=== PATIENT | female | born 1995 | race Caucasian/White ===

== ENCOUNTER 2021-12-11 03:47 | Emergency (ER) | payer BC, OTHER ==
[~2021-12-11] VITALS: Ht 149.9 cm; Wt 53.0 kg
[2021-12-11 06:42] LABS: HEMATOCRIT 42.5 % (36.0-47.0); HEMOGLOBIN 14.8 g/dl (12.0-15.5); MEAN CORPUSCULAR HEMOGLOBIN 33.9 pg (27.0-33.0); MEAN CORPUSCULAR HGB CONC 34.8 g/dl (32.0-36.5); MEAN CORPUSCULAR VOLUME 97.5 fl (80.0-96.0); PLATELET COUNT, AUTOMATED 211 10^3/uL (150-450); RED BLOOD COUNT 4.36 10^6/uL (4.00-5.40); WHITE BLOOD COUNT 5.3 10^3/uL (4.0-10.0)
[2021-12-11 07:05] LABS: AMPHETAMINES LEVEL URINE NEGATIVE (NEGATIVE); BARBITURATES URINE NEGATIVE (NEGATIVE); BENZODIAZEPINES URINE NEGATIVE (NEGATIVE); CANNABINOIDS URINE NEGATIVE (NEGATIVE); COCAINE METABOLITE URINE NEGATIVE (NEGATIVE); METHADONE URINE NEGATIVE (NEGATIVE); OPIATES URINE NEGATIVE (NEGATIVE); PHENCYCLIDINE URINE NEGATIVE (NEGATIVE)
[2021-12-11 07:17] LABS: ACETAMINOPHEN LEVEL < 2.0 UG/ML (10.0-30.0); ALBUMIN 4.3 GM/DL (3.2-5.2); ALT/SGPT 29 U/L (12-78); BILIRUBIN,DIRECT 0.1 MG/DL (0.0-0.2); BILIRUBIN,TOTAL 0.5 MG/DL (0.2-1.0); BLOOD UREA NITROGEN 10 MG/DL (7-18); CALCIUM LEVEL 9.7 MG/DL (8.5-10.1); CARBON DIOXIDE LEVEL 29 MEQ/L (21-32); CHLORIDE LEVEL 105 MEQ/L (98-107); CREATININE FOR GFR 0.74 MG/DL (0.55-1.30); ETHYL ALCOHOL (ETHANOL) < 0.003 % (0.000-0.010); GLOMERULAR FILTRATION RATE > 60.0 (>60); GLUCOSE, FASTING 105 MG/DL (70-100); POTASSIUM SERUM 3.8 MEQ/L (3.5-5.1); SALICYLATE LEVEL < 1.7 MG/DL (5.0-30.0); SODIUM LEVEL 141 MEQ/L (136-145); TOTAL PROTEIN 7.6 GM/DL (6.4-8.2)
[2021-12-11 08:10] LABS: HCG, SERUM QUALITATIVE NEGATIVE (NEGATIVE)
[2021-12-11 08:19] LABS: RSV AMPLIFICATION NEGATIVE (NEGATIVE)
[2021-12-11 16:53] VITALS: BP 130/72
== END 2021-12-11 16:56 | disposition home or self-care (01) ==
LOC: M ED 03:47
DX: F43.0 Acute stress reaction (principal)

== ENCOUNTER 2024-07-02 11:38 | Inpatient (IN) | payer BC, MEDICAID, OTHER ==
[~2024-07-02] VITALS: Ht 142.2 cm; Wt 80.0 kg
[2024-07-02 12:19] LABS: HEMATOCRIT 41.2 % (36.0-47.0); HEMOGLOBIN 13.8 g/dl (12.0-15.5); MEAN CORPUSCULAR HEMOGLOBIN 30.2 pg (27.0-33.0); MEAN CORPUSCULAR HGB CONC 33.5 g/dl (32.0-36.5); MEAN CORPUSCULAR VOLUME 90.2 fl (80.0-96.0); PLATELET COUNT, AUTOMATED 269 10^3/uL (150-450); RED BLOOD COUNT 4.57 10^6/uL (4.00-5.40); WHITE BLOOD COUNT 7.7 10^3/uL (4.0-10.0)
[2024-07-02 12:40] LABS: AMPHETAMINES LEVEL URINE NEGATIVE (NEGATIVE); BARBITURATES URINE NEGATIVE (NEGATIVE); BENZODIAZEPINES URINE NEGATIVE (NEGATIVE); COCAINE METABOLITE URINE NEGATIVE (NEGATIVE); METHADONE URINE NEGATIVE (NEGATIVE)
[2024-07-02 12:41] LABS: CANNABINOIDS URINE NEGATIVE (NEGATIVE); OPIATES URINE NEGATIVE (NEGATIVE); PHENCYCLIDINE URINE NEGATIVE (NEGATIVE)
[2024-07-02 12:43] LABS: ETHYL ALCOHOL (ETHANOL) < 0.003 % (0.000-0.010)
[2024-07-02 12:45] LABS: ALBUMIN 3.9 G/DL (3.2-5.2); ALKALINE PHOSPHATASE 69 U/L (35-104); ALT/SGPT 38 U/L (7.0-40); AST/SGOT 24 U/L (<34); BILIRUBIN,DIRECT 0.1 MG/DL (<0.4); BILIRUBIN,TOTAL 0.5 MG/DL (0.3-1.2); BLOOD UREA NITROGEN 5 MG/DL (9-23); CALCIUM LEVEL 9.4 MG/DL (8.5-10.1); CARBON DIOXIDE LEVEL 22 MMOL/L (20-31); CHLORIDE LEVEL 106 MMOL/L (98-107); CREATININE FOR GFR 0.66 MG/DL (0.55-1.30); GLOMERULAR FILTRATION RATE > 60.0 (>60); GLUCOSE, FASTING 110 MG/DL (60-100); POTASSIUM SERUM 3.7 MMOL/L (3.5-5.1); SALICYLATE LEVEL < 3.0 MG/DL (<30); SODIUM LEVEL 143 MMOL/L (136-145); TOTAL PROTEIN 7.8 G/DL (5.7-8.2)
[2024-07-02 12:47] LABS: THYROID STIMULATING HORMONE 0.922 uIU/ML (0.55-4.78)
[2024-07-02 13:20] LABS: HCG, SERUM QUALITATIVE NEGATIVE (NEGATIVE)
[2024-07-02] MEDS ORDERED: DROS1TAB PO (15:00)
[2024-07-02] MEDS ORDERED: METF10004 PO (15:00)
[2024-07-02] MEDS ORDERED: HOME MED LIST COMPLETE! XX SCH (15:00)
[2024-07-02] MEDS ORDERED: MOM 30ML SUSPENSION UDC PO PRN (20:30)
[2024-07-02] MEDS ORDERED: ACETAMINOPHEN 325 MG TAB PO PRN (20:30)
[2024-07-02] MEDS ORDERED: MAALOX 30 ML SUSP *UDC PO PRN (20:30)
[2024-07-03 02:09] VITALS: BP 144/80; TEMP 97.2; O2SAT 99
[2024-07-03 06:33] VITALS: BP 158/90; TEMP 97.3; O2SAT 97
[2024-07-03] MEDS ORDERED: OLANZapine ORAL DISINTEGRATING TAB 5MG PO PRN (10:10)
[2024-07-03] MEDS: metFORMIN (GLUCOPHAGE) 1000MG TABLET PO SCH (10:34)
[2024-07-03] MEDS: RISPERIDONE 1 MG TAB PO SCH (10:34)
[2024-07-03 15:43] VITALS: BP 124/77; TEMP 97.4; O2SAT 95
[2024-07-03] MEDS: IBUPROFEN 400MG TAB PO PRN (16:04)
[2024-07-03] MEDS: traZODone 50 MG TAB PO PRN (20:18)
[2024-07-04 06:24] VITALS: BP 150/90; TEMP 97.6; O2SAT 96
[2024-07-04 15:30] VITALS: BP 147/89; TEMP 97.7; O2SAT 97
[2024-07-05] MEDS: NICOTINE 21MG/24HR 1 EA TRANSDERMAL TD PRN (14:38)
[2024-07-05 16:07] VITALS: BP 144/86; TEMP 97.2; O2SAT 98
[2024-07-05] MEDS: diphenhydrAMINE 25MG CAP PO PRN (21:22)
[2024-07-06 06:48] VITALS: BP 115/68; TEMP 97; O2SAT 98
[2024-07-06] MEDS ORDERED: NICO21PAT TD (07:44)
== END 2024-07-06 14:15 | disposition home or self-care (01) | DRG 750 ==
LOC: M ED 11:38 → M ED INP 20:27 → M PSY 07-03 00:01
PROVIDERS: ADMIT Psychiatry & Neurology Neurology; ATTEND Psychiatry & Neurology Psychiatry
DX: F20.9 Schizophrenia, unspecified (principal); Z88.0 Allergy status to penicillin; Z79.899 Other long term (current) drug therapy; F17.200 Nicotine dependence, unspecified, uncomplicated